=== PATIENT | female | born 1970 | race Caucasian/White ===

== ENCOUNTER → 2024-02-05 | Outpatient (CLI) | payer BC ==
[2024-02-05 14:40] LABS: HCT 37.5 % (37.2-46.3); MCH 24.9 pg (27.0-32.0); Mean Platelet Volume 8.6 FL (9.5-12.2); NRBC Per 100 WBC 0 X 10*3/uL (0.00-0.01); Platelet Count 325 X 10*3/uL (140-440); RBC 4.81 X 10*6/uL (4.10-5.20); RDW 15.8 % (11.5-14.5); WBC 6.41 X 10*3/uL (4.50-10.00)
[2024-02-05 14:41] LABS: Basophils # (A) 0.04 X 10*3/uL (0.00-0.10); Basophils % (A) 0.6 %; Eosinophils # (A) 0.06 X 10*3/uL (0.04-0.35); Eosinophils % (A) 0.9 %; Lymphocytes # (A) 2.06 X 10*3/uL (0.90-5.00); Lymphocytes % (A) 32.1 %; Monocytes # (A) 0.57 X 10*3/uL (0.20-1.00); Monocytes % (A) 8.9 %; Neutrophils # (A) 3.67 X 10*3/uL (1.80-7.70); Neutrophils % (A) 57.3 %
[2024-02-05 15:36] LABS: % Iron Saturation 10.27 (12.00-45.00); C Reactive Protein 1.4 mg/dL (0.00-0.80)
[2024-02-05 15:58] LABS: Erythrocyte Sedimentation Rate 44 mm/Hr (0-30)
[2024-02-06 10:23] LABS: HLA B27 POSITIVE
== END | disposition home or self-care (01) ==
LOC: LABWHC1 10:28
PROVIDERS: ATTEND Internal Medicine
DX: D64.9 Anemia, unspecified (principal); M77.8 Other enthesopathies, not elsewhere classified
CPT/HCPCS: 36415; 82728; 83540; 83550; 85025; 85652; 86140; 86812